=== PATIENT | female | born 1955 | race Caucasian/White ===

== ENCOUNTER 2018-04-03 06:29 | Day surgery (SDC) | payer OTHER ==
[2018-04-03] MEDS ORDERED: LIDOCAINE 2% (SDV) 5 ML INJ (07:00)
[2018-04-03] MEDS ORDERED: DEXAMETHASONE 4 MG/ML 1 ML INJ ×2 (07:03→07:29)
[2018-04-03] MEDS ORDERED: PROPOFOL 40 ML (07:28)
[2018-04-03] MEDS ORDERED: CEFAZOLIN 1 GM INJ (07:28)
[2018-04-03] MEDS ORDERED: FAMOTIDINE 20 MG INJ (07:28)
[2018-04-03] MEDS ORDERED: FENTAnyl 50 MCG/ML VIAL (07:28)
[2018-04-03] MEDS ORDERED: MIDAZOLAM 1 MG/ML 2 ML INJ (07:28)
[2018-04-03] MEDS ORDERED: ONDANSETRON 4 MG INJ (07:29)
[2018-04-03] MEDS ORDERED: OXYCODONE/ACETAMINOPHEN (5/325) TAB PO ×2 (07:30)
[2018-04-03] MEDS ORDERED: LABETALOL HCL 20MG INJ IV (07:30)
[2018-04-03] MEDS ORDERED: ONDANSETRON 4 MG INJ IV (07:30)
[2018-04-03] MEDS ORDERED: HYDROmorphONE 1 MG/5 ML IV SYRINGE IV ×2 (07:30)
[2018-04-03] MEDS ORDERED: ALBUTEROL 0.083% (NEB) 2.5 MG/3 ML AMP HHN (07:30)
[2018-04-03] MEDS ORDERED: FENTAnyl 50 MCG/ML VIAL IV ×2 (07:30)
[2018-04-03] MEDS ORDERED: DIPHENHYDRAMINE 50 MG INJ IV (07:30)
[2018-04-03] MEDS ORDERED: morphine (1 MG/ML) 10ML SYRINGE IV ×2 (07:30)
[2018-04-03] MEDS ORDERED: MEPERIDINE 25 MG INJ IV (07:30)
[2018-04-03] MEDS: LIDOCAINE 1% (STERILE-PAK) 30 ML INJ (07:37)
[2018-04-03] MEDS ORDERED: CEFAZOLIN 1 GM/50 ML (PMX) 50 ML IVPB (07:40)
[2018-04-03] MEDS ORDERED: KETOROLAC 30 MG INJ (08:16)
[2018-04-03] MEDS: BUPIVACAINE 0.5% (SDV) 30 ML INJ (08:28)
== END 2018-04-03 10:05 | disposition home or self-care (01) ==
LOC: SDS 06:29
DX: M20.41 Other hammer toe(s) (acquired), right foot (principal)
CPT/HCPCS: 28011; 88305; 88311